=== PATIENT | male | born 1975 | race Caucasian/White ===

== ENCOUNTER 2020-12-06 10:59 | Emergency (ER) | payer SELFPAY ==
[2020-12-06] MEDS ORDERED: Triamcinolone 40 MG/ML VIAL ONE (12:25)
== END 2020-12-06 12:50 | disposition home or self-care (01) ==
LOC: MADERS 10:59
DX: L50.9 Urticaria, unspecified (principal); M19.90 Unspecified osteoarthritis, unspecified site; F17.210 Nicotine dependence, cigarettes, uncomplicated
CPT/HCPCS: 96372; 99282; J3301

== ENCOUNTER 2021-10-12 19:04 | Emergency (ER) | payer SELFPAY ==
[2021-10-12] MEDS ORDERED: HYDROcodone/Acetaminophen 5/325 mg Tablet ONE (19:53)
== END 2021-10-12 19:56 | disposition home or self-care (01) ==
LOC: MADERS 19:04
DX: M66.821 Spontaneous rupture of other tendons, right upper arm (principal); M19.90 Unspecified osteoarthritis, unspecified site; F17.210 Nicotine dependence, cigarettes, uncomplicated
CPT/HCPCS: 99283

== ENCOUNTER 2022-08-20 18:29 | Emergency (ER) | payer SELFPAY ==
[2022-08-20] MEDS ORDERED: Tetracaine 0.5% PF 4 ML BOT ONE (18:40)
[2022-08-20] MEDS ORDERED: Fluorescein Opthalmic Strip ONE (18:40)
[2022-08-20] MEDS ORDERED: Erythromycin Base 0.5% Ophth Oint 3.5 gm Tube ONE (19:03)
[2022-08-20] MEDS ORDERED: Ibuprofen 600 MG TAB ONE (19:03)
[2022-08-20] MEDS ORDERED: traMADol HCl 50 MG TAB ONE (19:03)
== END 2022-08-20 19:15 | disposition home or self-care (01) ==
LOC: MADERS 18:29
DX: S05.01XA Injury of conjunctiva and corneal abrasion without foreign body, right eye, initial encounter (principal); F17.210 Nicotine dependence, cigarettes, uncomplicated; X58.XXXA Exposure to other specified factors, initial encounter
CPT/HCPCS: 99283